=== PATIENT | female | born 1970 | race Caucasian/White ===

== ENCOUNTER 2017-01-22 11:29 | Day surgery (SDC) | payer BC ==
[2017-01-18 13:59] LABS: HEMATOCRIT 37.5 % (36.0-48.0); HEMOGLOBIN 13.2 g/dL (12.0-16.0)
[2017-01-18 16:37] LABS: ASCORBIC ACID (UR NOT ORDER) NEG (NEG); BILIRUBIN, URINE NEGATIVE (NEG); KETONE, URINE NEGATIVE (NEG); LEUKOCYTE ESTERASE(NOT OR NEG (NEG); WBC (NOT ORDERED) (RFLEX) 1 (0-5)
--- NOTE | ~2017-01-22 | OP ---
Record Of Operation [facility] [address] [place]. [address] NAME: LUCAS RUIZ : 74 STATUS : [facility]#: [id number] AGE: 46 ADM/REG DATE : 01/22/17 MR#: [id number] REPORT SERV DATE: 01/22/17 DICTATED BY: LUÍS ROGERS JR. DATE: 01/22/17 REPORT STATUS : Draft TRANSCRIBED BY: MODL DATE: 01/22/17 DATE OF PROCEDURE: 01/22/2017 SURGEON: Luís Rogers M.D. PREOPERATIVE DIAGNOSIS: Right-sided intermittent pain with recurrent urinary tract infection. POSTOPERATIVE DIAGNOSIS: Right-sided intermittent pain with recurrent urinary tract infection. PROCEDURE PERFORMED: Cystoscopy, bilateral retrograde pyelogram, right ureteroscopy with laser ablation of multiple right renal stones, largest measuring 7 mm in size, removal of fragments, and double-J stent placement. COMPLICATIONS: None. CONSULTATIONS: None. ANESTHESIA: General with an endotracheal tube. SPECIMENS: Right renal stone fragments. DRAINS: 6 x 24 cm double-J stent with string. ESTIMATED BLOOD LOSS: None. INDICATION: Mrs Ruiz is a 46-year-old female, with a history of bilateral nephrolithiasis, intermittent right-sided flank pain, and recurrent urinary tract infection. She comes today for treatment of the right-sided stone burden as it seems to be the largest, she does have a small stone on the left side. PROCEDURE IN DETAIL: After the patient was identified and proper informed consent was obtained, she was taken to the operating room. General anesthesia was performed without complication using an endotracheal tube. She was then prepped and draped in a normal sterile fashion in the lithotomy position. Cystoscopic examination of the urethra and bladder were performed and found to be normal. Both ureteral orifices were in the normal position and normal size. Left retrograde pyelogram was performed which reveals a normal course and caliber to the left collecting system. She had the filling defects and the system drained adequately in a very short period of time. On the right side, retrograde pyelogram was also performed which showed a normal course to the ureter, however, she did have more variability in the diameter of the ureter on the right and the renal pelvis was somewhat dilated. She had a large calcified filling defect in the lower pole of the right kidney, it was also noted on CT scan, along with several other stones in the renal mid pole and upper pole. I then placed a guidewire through the open-ended catheter up to the kidney and then was able to perform flexible ureteroscopy without dilating the distal ureter all Record Of Operation [facility] [address] [place]. [address] NAME: LUCAS RUIZ : 74 STATUS : [facility] PAT#: [id number] AGE: 46 ADM/REG DATE : 01/22/17 MR#: [id number] REPORT SERV DATE: 01/22/17 DICTATED BY: LUÍS ROGERS JR. DATE: 01/22/17 REPORT STATUS : Draft TRANSCRIBED BY: MODL DATE: 01/22/[address] to the renal pelvis. The stones in the lower pole of the kidney were in somewhat difficult position to perform laser ablation on, I therefore used the NGage basket to grasp the stones and move them to the upper pole. Once the stones were in adequate position, I fragmented them using a 200 micron Holmium laser fiber into very small pieces. The largest of which was removed for reference and it was approximately 0.5 mm. I then inspected the rest of the calices and fragmented two other stones for a total of five. The kidney was reinspected to make sure there were no other stones that would cause problems with obstruction, based on the small stone size, I was unable to grasp any the other stones within the NGage or Nitinol basket. I then left those stone pieces in the kidney and deployed a 6 x 24 cm double-J stent without difficulties with a nice curl in both the bladder and the kidney, it was left with a stent, the string was also left in place for removal on Sunday. I will see her back in the office in approximately six weeks for stone analysis. ZHEN/OWEN Luís Rogers Jr., M.D. / [id number] CC: Nickie Mcnulty Jr., M.D.
[~2017-01-22 11:29] MED LIST: CRESTOR5 MG PO; LEVAQUIN750 MG PO; PLAVIX PO; PROLOP100 PO
[2017-01-27 14:03] LABS: STONE COMPOSITION TWO DNR (())
== END 2017-01-22 18:11 | disposition home or self-care (01) ==
LOC: SDC 11:29
PROVIDERS: Urology
PROC: BT14ZZZ Fluoroscopy of Kidneys, Ureters and Bladder (ICD-10-PCS; 2017-01-22)
PROC: 0TC08ZZ Extirpation of Matter from Right Kidney, Via Natural or Artificial Opening Endoscopic (ICD-10-PCS; 2017-01-22)
PROC: 0T768DZ Dilation of Right Ureter with Intraluminal Device, Via Natural or Artificial Opening Endoscopic (ICD-10-PCS; principal; 2017-01-22 12:45)
DX: N20.0 Calculus of kidney (principal); N28.89 Other specified disorders of kidney and ureter; N39.0 Urinary tract infection, site not specified; I69.331 Monoplegia of upper limb following cerebral infarction affecting right dominant side; E78.00 Pure hypercholesterolemia, unspecified; D68.0 Von Willebrand disease; Z98.890 Other specified postprocedural states; Z88.1 Allergy status to other antibiotic agents; Z91.018 Allergy to other foods; Z79.02 Long term (current) use of antithrombotics/antiplatelets; Z79.2 Long term (current) use of antibiotics; Z79.899 Other long term (current) drug therapy; Z95.820 Peripheral vascular angioplasty status with implants and grafts
CPT/HCPCS: 74420; 81001; 82365; 84703; 85014; 85018; A9270-GY; C1758; C2617; J2250; J2405; J2710; J3010; Q9967